=== PATIENT | male | born 1980 | race Caucasian/White ===

== ENCOUNTER 2018-09-15 12:17 | Emergency (ER) | payer OTHER ==
[2018-09-15 13:36] VITALS: BP 118/92
[2018-09-15] MEDS ORDERED: Ketorolac INJ* 30 MG/ML 1 ML VIAL IM ONE (13:55)
--- NOTE | 2018-09-15 14:07 | UC ---
Back Pain HPI - HPI Summary HPI Summary: Pt c/o left side low back pain that began after working on putting in a floor 5 days ago. Pt states pain began left lower back and now radiates down left side buttcok left posterior leg, to left foot. Denies loss of bowel or bladder control, loss of lower leg function/control. Denies recent trauma. - History of Current Complaint Chief Complaint: UCLowerExtremity Stated Complaint: LOW BACK/LEFT LEG PAIN Time Seen by Provider: 09/15/18 13:38 Hx Obtained From: Patient Onset/Duration: Gradual Onset, Lasting Days, Still Present Timing: Constant Severity Initially: Moderate Severity Currently: Moderate Pain Intensity: 7 Back Pain: Is Discrete @, Radiates To - left posterior leg to left foot. Character: Dull, Aching, Stiffness, Burning Aggravating Factor(s): Movement, Lifting, Bending, Walking Alleviating Factor(s): Rest, Position Associated Signs And Symptoms: Positive: Negative - Risk Factors AAA Risk Factors: Negative TAD Risk Factors: Negative Cauda Equina Risk Factors: Negative Epidural Abscess Risk Factors: Negative - Allergies/Home Medications Allergies/Adverse Reactions: Allergies Allergy/AdvReac Type Severity Reaction Status Date / Time acetaminophen [From Percocet] Allergy Vomiting Verified 09/15/18 13:32 nicotine Allergy Difficulty Verified 09/15/18 13:32 Breathing oxycodone [From Percocet] Allergy Vomiting Verified 09/15/18 13:32 PMH/Surg Hx/FS Hx/Imm Hx Previously Healthy: Yes - Surgical History Surgical History: Yes Surgery Procedure, Year, and Place: RIGHT ANKLE - Family History Known Family History: Positive: Cardiac Disease - Social History Occupation: Employed Full-time Lives: With Family Alcohol Use: None Substance Use Type: Marijuana Substance Use Comment - Amount & Last Used: occaionally Smoking Status (MU): Never Smoked Tobacco Have You Smoked in the Last Year: Yes - marijuana Review of Systems All Other Systems Reviewed And Are Negative: Yes Constitutional: Positive: Negative Skin: Positive: Negative Eyes: Positive: Negative ENT: Positive: Negative Respiratory: Positive: Negative Cardiovascular: Positive: Negative Gastrointestinal: Positive: Negative Genitourinary: Positive: Negative Motor: Positive: Negative Neurovascular: Positive: Negative Musculoskeletal: Positive: Arthralgia, Myalgia Neurological: Positive: Negative Psychological: Positive: Negative Is Patient Immunocompromised?: No Physical Exam Triage Information Reviewed: Yes Appearance: Well-Appearing Vital Signs: Initial Vital Signs Temp 97.4 F 09/15/18 13:32 Pulse 63 09/15/18 13:32 Resp 16 09/15/18 13:32 BP 118/92 09/15/18 13:32 Pulse Ox 99 09/15/18 13:32 Vital Signs Reviewed: Yes Eye Exam: Normal ENT Exam: Normal ENT: Positive: Hearing grossly normal Respiratory: Positive: No respiratory distress Musculoskeletal Exam: Normal Musculoskeletal: Positive: Strength Intact, ROM Intact, Other: - c/o point tenderness left buttock, mid buttock that radiate left posterior leg. Neurological Exam: Normal Psychological Exam: Normal Skin Exam: Normal Back Pain Course/Dx - Differential Dx/Diagnosis Differential Diagnosis/HQI/PQRI: Cauda Equina Syndrome, Herniated Disc Provider Diagnosis: Sciatica of left side Discharge - Sign-Out/Discharge Documenting (check all that apply): Patient Departure All imaging exams completed and their final reports reviewed: No Studies - Discharge Plan Condition: Stable Disposition: HOME Prescriptions: Cyclobenzaprine TAB* [Flexeril 10 MG TAB*] 10 mg PO Q8H PRN #15 tab PRN Reason: Pain Ibuprofen TAB* [Motrin TAB* 800 MG] 800 mg PO Q8H PRN #21 tab PRN Reason: Pain predniSONE TAB* [Deltasone 10 MG TAB*] 30 mg PO DAILY #12 tab Patient Education Materials: Sciatica (ED), Lower Back Exercises (ED) Referrals: [facility] [Outside] - If Needed No Primary Care Phys,NOPCP [Primary Care Provider] - - Billing Disposition and Condition Condition: STABLE Disposition: Home
== END 2018-09-15 14:21 | disposition home or self-care (01) ==
LOC: UCCORT 12:17
DX: M54.42 Lumbago with sciatica, left side (principal); Z88.5 Allergy status to narcotic agent; Z88.8 Allergy status to other drugs, medicaments and biological substances; Z91.09 Other allergy status, other than to drugs and biological substances
CPT/HCPCS: 96372; 99202; G0463; J1885

== ENCOUNTER 2020-10-26 07:14 | Inpatient (IN) ==
[~2020-10-26 07:14] MED LIST: Buffered Lidocaine 1% SYRIN 1 ml INTRADERM ONE; Lactated Ringers 1000 ml BAG 1,000 ML IV SCH; ceFAZolin 2 GM in NS PREMIX 2 GM/100 ML BAG IVPB ONE
[2020-10-26] MEDS ORDERED: ceFAZolin VIAL VIAL ONE (07:54)
[2020-10-26] MEDS ORDERED: Bacitracin INJECTION 50,000 UNITS ONE (07:54)
[2020-10-26] MEDS ORDERED: Lidocaine 1% w EPI 1:200,000 SDV 30 ML VIAL ONE ×2 (07:54→09:14)
[2020-10-26] MEDS ORDERED: Remifentanil 2 MG VIAL ONE (08:17)
[2020-10-26] MEDS ORDERED: Lidocaine 2% PF 5 ML VIAL ONE (08:17)
[2020-10-26] MEDS ORDERED: Ketamine HCL 50 mg/ml 10 ml VIAL (500 MG) ONE (08:17)
[2020-10-26] MEDS ORDERED: Rocuronium 50 mg VIAL 10 mg/ml 5 ml VIAL (50 mg) ONE (08:17)
[2020-10-26] MEDS ORDERED: fentaNYL 100 mcg/2 ml 50 MCG/ML VIAL ONE (08:17)
[2020-10-26] MEDS ORDERED: Midazolam 2 mg/2 ml VIAL 1 mg/ml 2 ml VIAL (2 mg) ONE (08:17)
[2020-10-26] MEDS ORDERED: Thrombin 5,000 UNITS 1 APPLIC KIT - topical use - TOPICAL ONE (08:22)
[2020-10-26] MEDS ORDERED: Gelfoam Sponge SIZE 100 SPONGE ONE (08:22)
[2020-10-26] MEDS ORDERED: Lidocaine 1% w EPI 1:100,000 MDV 20 ML VIAL ONE (09:13)
[2020-10-26] MEDS ORDERED: Propofol 10 MG/ML 20 ML BTL ONE ×3 (09:43→09:47)
[2020-10-26] MEDS ORDERED: Propofol 10 mg/ml 100 ML BTL 100 ML ONE (10:13)
[2020-10-26] MEDS ORDERED: Dexamethasone IV 4 MG/ML VIAL 1 ml VIAL ONE ×2 (11:36→11:48)
[2020-10-26] MEDS ORDERED: Ondansetron 4 mg VIAL 2 MG/ML 2 ml VIAL ONE (11:48)
[2020-10-26] MEDS ORDERED: HYDROmorphone 1 MG/1 ML SYRINGE ONE (12:07)
[2020-10-26] MEDS ORDERED: Ondansetron 4 mg VIAL 2 MG/ML 2 ml VIAL IV PRN (12:15)
[2020-10-26] MEDS ORDERED: Polyethylene Glycol 3350 17 GM PACKET PO PRN (12:22)
[2020-10-26] MEDS ORDERED: Benzocaine/Menthol LOZ PO PRN (12:22)
[2020-10-26] MEDS ORDERED: Prochlorperazine 5 mg/ml 2 ml VIAL (10 mg) IV PRN (12:26)
[2020-10-26] MEDS ORDERED: HYDROmorphone 1 MG/1 ML SYRINGE IV PRN (12:26)
[2020-10-26] MEDS ORDERED: Naloxone 0.4 mg VIAL 0.4 mg/ml 1 ml VIAL IV PRN (12:26)
[2020-10-26] MEDS ORDERED: diPHENhydraMINE IV 50 MG/ML 1 ml VIAL (BENADRYL) IV PRN (12:26)
[2020-10-26] MEDS ORDERED: Pantoprazole VIAL 40 MG VIAL IV SCH (13:00)
[2020-10-26] MEDS: Acetaminophen IV 1 GM/100ML 100 ML IVPB SCH ×2 (15:41→22:47)
[2020-10-26] MEDS: Dexamethasone IV 4 MG/ML VIAL 1 ml VIAL IV SLOW PU SCH ×2 (15:41→22:44)
[2020-10-26] MEDS: ceFAZolin 2 GM PREMIX 2 GM/50 ML BAG IVPB SCH (17:49)
[2020-10-26] MEDS: Orphenadrine Citrate INJ 30 mg/ml 2 ml VIAL (60 mg) IV SCH (22:44)
[2020-10-26] MEDS: Magnesium Hydroxide LIQ 30 ML UDC PO SCH (22:58)
[2020-10-27] MEDS: ceFAZolin 2 GM PREMIX 2 GM/50 ML BAG IVPB SCH ×2 (02:00→10:29)
[2020-10-27] MEDS: Dexamethasone IV 4 MG/ML VIAL 1 ml VIAL IV SLOW PU SCH (05:48)
[2020-10-27] MEDS: Acetaminophen IV 1 GM/100ML 100 ML IVPB SCH (05:48)
[2020-10-27] MEDS ORDERED: Enoxaparin 40 MG/0.4 ML SYR SUBCUT SCH (09:00)
[2020-10-27] MEDS: Orphenadrine Citrate INJ 30 mg/ml 2 ml VIAL (60 mg) IV SCH (10:31)
[2020-10-27] MEDS: Magnesium Hydroxide LIQ 30 ML UDC PO SCH (10:31)
[2020-10-27 11:24] VITALS: BP 131/51
[2020-10-27] MEDS ORDERED: Pantoprazole VIAL 40 MG VIAL IV SCH (11:30)
[2020-10-29] MEDS ORDERED: Scopolamine PATCH Remove NOTE PATCH OFF ONE (06:00)
== END 2020-10-27 13:08 | disposition home or self-care (01) | DRG 473 ==
LOC: AA 07:14 → SSU 14:30
PROVIDERS: ADMIT Neurological Surgery; ATTEND Neurological Surgery